=== PATIENT | male | born 1935 | race Caucasian/White ===

== ENCOUNTER 2017-07-22 13:46 | Emergency (ER) | payer OTHER ==
[~2017-07-22] VITALS: Ht 180.3 cm; Wt 89.8 kg
[~2017-07-22 13:46] MED LIST: ASPI81TA2 PO; ATOR10TA68 PO; CLOP75TA32 PO; DORZ10DR10 EACH EYE; DULO20CA PO; FURO-150 PO; GLU500 PO; HUM10VIA7 SUBCUT; LATA2.5D2 OP; LOSA100T11 PO; METO25TA6 PO; NIFE60TA18 PO; TRAZ-123 PO; [UNRECOGNIZED DRUG - CODE] EACH EYE
[2017-07-22 14:08] VITALS: BP_SYST 122
[2017-07-22] MEDS ORDERED: DIPH-TET Vacc 0.5 ML VIAL I.M. ONE (15:15)
[2017-07-22 16:30] VITALS: BP_SYST 132
== END 2017-07-22 16:30 | disposition home or self-care (01) ==
LOC: SED 13:46
DX: S91.114A Laceration without foreign body of right lesser toe(s) without damage to nail, initial encounter (principal); F41.9 Anxiety disorder, unspecified; I12.9 Hypertensive chronic kidney disease with stage 1 through stage 4 chronic kidney disease, or unspecified chronic kidney disease; E11.22 Type 2 diabetes mellitus with diabetic chronic kidney disease; N18.9 Chronic kidney disease, unspecified; Z86.73 Personal history of transient ischemic attack (TIA), and cerebral infarction without residual deficits; Z90.49 Acquired absence of other specified parts of digestive tract; Z90.89 Acquired absence of other organs; Z79.82 Long term (current) use of aspirin; Z79.4 Long term (current) use of insulin; Z88.8 Allergy status to other drugs, medicaments and biological substances; W22.8XXA Striking against or struck by other objects, initial encounter; Y93.89 Activity, other specified; Y92.89 Other specified places as the place of occurrence of the external cause; Y99.8 Other external cause status
CPT/HCPCS: 90714; 99284